=== PATIENT | male | born 1995 | race Caucasian/White ===

== ENCOUNTER 2022-01-23 15:44 | Emergency (ER) | payer BC, SELFPAY ==
--- NOTE | ~2022-01-23 | XR_ITS ---
XR foot RT min 3V DATE: 01/23/2022 16:04 INDICATION: Dorsal right foot injury, swelling TECHNIQUE: 4 views COMPARISON: None FINDINGS: No fracture or dislocation, periosteal reaction or bone destruction. Joint spaces are prese rved. IMPRESSION: Negative Reviewed, dictated and finalized at location B. IMPRESSION: Negative
[2022-01-23 15:55] VITALS: BP 122/68; PULSE 81; RESP 16; TEMP 36.6; O2SAT 100
--- NOTE | 2022-01-23 16:06 | ED.LOWEXIN ---
HPI - Extremity Injury (Lower) General Chief Complaint: Extremity Injury, Lower Stated Complaint: Right Foot Pain Time Seen by Provider: 01/23/22 16:07 Source: patient Mode of arrival: ambulatory Limitations: no limitations History of Present Illness HPI Narrative: 26-year-old male presented for complaint of right foot pain after injury 3 days ago when he dropped a piece of wood on the foot. Endorses bruising tingling to the 2nd 3rd and 4th toes. Also endorses an abrasion to the top of the foot. This is the site of the most pain. Denies decreased ROM. He is able to ambulate without difficulty. Up-to-date on tetanus. Related Data Allergies Allergy/AdvReac Type Severity Reaction Status Date / Time clavulanic acid Allergy Mild Unknown Verified 01/23/22 16:09 Penicillins Allergy Mild Unknown Verified 01/23/22 16:09 BETALACTAMASEIN Allergy Mild Unknown Uncoded 01/23/22 16:09 Review of Systems Review of Systems: CONSTITUTIONAL: Denies body aches, fever, chills CARDIOVASCULAR: Denies chest pain, palpitations, or edema. RESPIRATORY: Denies cough or dyspnea. SKIN: Denies rash, itching MUSCULOSKELETAL: Reports right foot pain NEUROLOGIC: Denies headache, numbness, tingling, or weakness. All systems reviewed & are unremarkable except as noted in HPI and below PMFSH Comments At time of signature, I have reviewed and agree with nursing past medical, surgical, social and family history unless otherwise noted. Please see nursing chart for further information. There is no relevant family history pertinent to the presenting complaint Exam Narrative: GENERAL: Well-appearing CHEST: Speaks in full sentences. No respiratory distress. HEART: Regular rate and rhythm. Normal and equal peripheral pulses. EXTREMITIES: right foot with bruising to 2nd-4th MTP joints, nontender, full active ROM. Right dorsal/lateral aspect of foot with abrasion and surrounding erythema, tender to palpation, no drainage or swelling. has normal strength and sensation; pulse palpable and equal bilaterally, skin warm, dry, pink. Capillary refill less than 3 seconds. SKIN: Warm, dry, no rash. NEURO: Alert and oriented x3. PSYCH: Normal mood and affect Course Course Emergency Course: Patient is aware of diagnosis, understands and agrees to treatment plan. Anticipatory guidance given. Patient agrees to follow-up as directed and is aware of reasons to seek care at the emergency department. Portions of this record may have been created with voice recognition software Level of Care: Express Care Visit Vital Signs Vital signs: Vital Signs Temperature 97.9 F 01/23/22 15:55 Pulse Rate 81 01/23/22 15:55 Respiratory Rate 16 01/23/22 15:55 Blood Pressure 122/68 01/23/22 15:55 Pulse Oximetry 100 01/23/22 15:55 Oxygen Delivery Room Air 01/23/22 15:55 Temperature 97.9 F 01/23/22 15:55 Pulse Rate 81 01/23/22 15:55 Respiratory Rate 16 01/23/22 15:55 Blood Pressure 122/68 01/23/22 15:55 Pulse Oximetry 100 01/23/22 15:55 Oxygen Delivery Room Air 01/23/22 15:55 Reviewed MDM - Extremity Injury (Lower) MDM Narrative Medical decision making narrative: Results of x-ray reviewed with patient. He is advised supportive measures, RICE therapy, And signs/symptoms to go to the ER. CATALINO applied per RN. Pt is appropriate for outpt treatment and f/u. Differential Diagnosis Differential diagnosis: Likely other (Toe fracture, foot fracture, foot contusion, abrasion) Imaging Data Radiologist's impression: Ordering Physician: Callie Lu APRN Date of Service: 01/23/22 Procedure(s): XR foot RT min 3V Accession Number(s): [id number] cc: Callie Lu APRN; TECHNICAL COORDINATOR PHYSICIAN~ XR foot RT min 3V DATE: 01/23/2022 16:04 INDICATION: Dorsal right foot injury, swelling? TECHNIQUE: 4 views? COMPARISON: None? FINDINGS: No fracture or dislocation, periosteal reaction or bone destruction. Joint spaces are preserved.?
== END 2022-01-23 16:27 | disposition home or self-care (01) ==
PROVIDERS: Emergency Provider Nurse Practitioner Family
DX: S90.811A Abrasion, right foot, initial encounter (principal); W20.8XXA Other cause of strike by thrown, projected or falling object, initial encounter; S90.121A Contusion of right lesser toe(s) without damage to nail, initial encounter
CPT/HCPCS: 73630; 99213; G0463

== ENCOUNTER 2022-05-15 12:38 | Emergency (ER) | payer BC, SELFPAY ==
--- NOTE | ~2022-05-15 | XR_ITS ---
EXAMINATION: XR shoulder RT min 2V DATE: 05/15/2022 13:34 INDICATION: Right shoulder pain. TECHNIQUE: 4 views of right shoulder were obtained. COMPARISON: None. FINDINGS: Bone alignment is normal. No fracture. Joint spaces are well maintained. IMPRESSION: 1. Normal right shoulder. Reviewed, dictated and finalized at location A. CURER IMPRESSION: 1. Normal right shoulder.
[2022-05-15 12:48] VITALS: BP 132/81; PULSE 72; RESP 16; TEMP 37.1; O2SAT 100
--- NOTE | 2022-05-15 13:08 | ED.UPPEXIN ---
HPI - Extremity Injury (Upper) General Chief Complaint: Extremity Injury, Upper Stated Complaint: Right Shoulder Pain Time Seen by Provider: 05/15/22 13:09 Source: patient, RN notes reviewed and old records reviewed Mode of arrival: ambulatory Limitations: no limitations History of Present Illness HPI narrative: 26-year-old male presents to the [facility] with complaints of right shoulder pain since Sunday, 3 days. Patient reports that he was arm wrestling when he felt a pop in her shoulder. Had taken some ibuprofen with minimal relief. Has full range of motion. No bruising or swelling noted. Positive radial pulse. Sensation intact in all 5 fingers. No numbness or tingling in extremity. Onset (ago): day(s) (3) Related Data Allergies Allergy/AdvReac Type Severity Reaction Status Date / Time clavulanic acid Allergy Mild Unknown Verified 01/23/22 16:09 Penicillins Allergy Mild Unknown Verified 01/23/22 16:09 BETALACTAMASEIN Allergy Mild Unknown Uncoded 01/23/22 16:09 Review of Systems Review of Systems: All systems reviewed & are unremarkable except as noted in HPI and below Constitutional: Constitutional: Reports no additional constitutional complaints, Denies chills and Denies fever(s) Eyes: Eyes: Reports no additional eye complaints ENT: Reports system reviewed and no additional complaints, except as documented Cardiovascular: Cardiovascular: Reports no additional cardiovascular complaints Respiratory: Respiratory: Reports no additional respiratory complaints Gastrointestinal: Gastrointestinal: Reports no additional gastrointestinal complaints Musculoskeletal: Musculoskeletal: Reports as per HPI, Reports arthralgias (Right shoulder) and Denies joint swelling Integumentary/Breasts: Skin/Breast: Reports system reviewed and no additional complaints, except as docu Neurologic: Reports system reviewed and no additional complaints, except as documented Psychiatric: Psychiatric: Reports no additional psychiatric complaints Allergic/Immunologic: Allergic/Immunologic: Reports no additional allergic/immunologic complaints PMFSH Social History Social History (Updated 05/16/22 @ 08:48 by Lizzie Ayala APRN) Gender identity (if verbalized by the patient): Male Comments At the time of my signature, I reviewed and agree with the nursing past medical, surgical, social, and family history. There is no relevant family history pertinent to the patient complaint. Exam Const: General: healthy appearing, comfortable, no acute distress, well developed, alert and well nourished Nutritional Appearance: well nourished Orientation/consciousness: patient oriented x3 Limitations: no limitations HENMT: Head: normal to inspection Ears: external ears normal Eyes: General: appearance normal, both eyes and all related structures Pupils: Equal, round and reactive pupils present Neck: Neck: normal visual inspection, full ROM, no lymphadenopathy and no meningeal signs Chest: Chest palpation & inspection: normal inspection of the chest Resp: Effort & Inspection: normal respiratory effort and no use of accessory muscles Auscultation: clear to auscultation bilaterally, no crackles, no rales, no rhonchi and no wheezes Cardio: Rate: regular rate Rhythm: regular rhythm Back/Spine/Pelvis: Cervical Spine: cervical ROM normal and No Cervical spine tenderness Thoracic/Lumbar Spine: thoracic and lumbar spine normal to inspection and thoraco-lumbar ROM normal Skin: General skin exam: normal color Rashes: no rashes Wounds: no wounds Neuro: General: patient oriented x3, moves all extremities, no meningeal signs and no focal motor deficits Cranial nerves: Yes Equal, round and reactive pupils present Speech: normal speech Gait exam (Neuro): Normal gait present Extrem: General: normal to inspection, full ROM and capillary refill normal Right upper extremity: normal capillary refill, shoulder/upper arm tenderness of the A-C joint and normal R
== END 2022-05-15 14:01 | disposition home or self-care (01) ==
PROVIDERS: Emergency Provider Nurse Practitioner
DX: S46.911A Strain of unspecified muscle, fascia and tendon at shoulder and upper arm level, right arm, initial encounter (principal); X50.9XXA Other and unspecified overexertion or strenuous movements or postures, initial encounter
CPT/HCPCS: 73030; 99213; G0463

== ENCOUNTER 2023-12-06 11:40 | Emergency (ER) | payer BC, SELFPAY ==
--- NOTE | 2023-12-06 11:42 | ED.URI ---
HPI - URI/Sore Throat General Chief Complaint: Eye Problems Stated Complaint: left eyelid swollen,fatigue,bodyaches,fever,sore t Time Seen by Provider: 12/06/23 11:42 Source: patient Mode of arrival: ambulatory Limitations: no limitations History of Present Illness HPI Narrative: Patient is a 28-year-old male who presents with 2 days of left upper eyelid swelling, along with generalized fatigue, body aches, fever and sore throat since Sunday. Started with left lower eyelid swelling that went away with warm compresses. Patient has taken [id number] with no relief. Does report sore throat has improved and is almost gone. Related Data Allergies Allergy/AdvReac Type Severity Reaction Status Date / Time clavulanic acid Allergy Mild Unknown Verified 01/23/22 16:09 Penicillins Allergy Mild Unknown Verified 01/23/22 16:09 BETALACTAMASEIN Allergy Mild Unknown Uncoded 01/23/22 16:09 Review of Systems Review of Systems: All systems reviewed & are unremarkable except as noted in HPI and below Constitutional: Constitutional: Reports body ache(s), Denies chills, Reports fatigue, Reports fever(s), Denies headache(s), Denies malaise and Denies weakness Eyes: Eyes: Denies blurry vision, Reports itchy eyes, Denies loss of vision and Reports other (Eyelid swelling) ENT: Denies otalgia, Denies headache(s), Reports nasal congestion, Denies sinus pain and Reports sore throat Cardiovascular: Cardiovascular: Denies chest pain, Denies irregular heart rhythm and Denies dyspnea Respiratory: Respiratory: Denies cough and Denies dyspnea Gastrointestinal: Gastrointestinal: Denies abdominal pain, Denies diarrhea, Denies nausea and Denies vomiting Musculoskeletal: Musculoskeletal: Denies back pain, Reports myalgias and Denies arthralgias Integumentary/Breasts: Skin/Breast: Denies pruritus and Denies rash Neurologic: Denies headache(s), Denies loss of vision and Denies weakness Psychiatric: Psychiatric: Reports no additional psychiatric complaints Endocrine: Endocrine: Denies fatigue Allergic/Immunologic: Allergic/Immunologic: Denies itchy eyes PMFSH Social History Social History Gender identity (if verbalized by the patient): Male Comments At time of signature, agree with nursing past medical, surgical, social and family history. There is no relevant family history pertinent to the presenting complaint. Exam Const: General: cooperative, healthy appearing, comfortable, no acute distress and well nourished Nutritional Appearance: well nourished Orientation/consciousness: patient oriented x3 Limitations: no limitations HENMT: Head: normal to inspection, normocephalic and atraumatic Ears: hearing grossly normal bilaterally, external ears normal, TM's normal bilaterally, no periauricular adenopathy and Abnormal EAC present excessive cerumen on the left Face/Nose/Sinus: Normal external nose present, Abnormal mucous membranes and turbinates present erythematous bilateral and diffuse, normal facial exam, sinuses nontender and face symmetric Face and sinus: normal facial exam, sinuses nontender and face symmetric Mouth: Yes Normal oral and palatal mucosa present, Yes lip normal, Yes tongue normal, Yes Normal salivary glands and ducts present, Yes oropharynx normal and Yes moist mucous membranes Teeth and gingiva: dentition normal Throat: uvula midline, abnormal tonsil bilateral erythema, hypertrophy 2+ and pitting, posterior oropharynx abnormal erythema and postnasal drainage Eyes: General: appearance normal, both eyes and all related structures Alignment and Position: alignment normal and position normal Periorbital: periorbital findings normal Eyelids: eyelid abnormality left upper eyelid inflamed cyst internal lid, erythema, swelling and tenderness Conjunctivae: conjunctivae normal Sclera: sclerae normal Pupils: Equal, round and reactive pupils present Neck: Neck: normal visual inspecti
[2023-12-06 11:57] VITALS: BP 120/100; PULSE 95; RESP 16; TEMP 36.6; O2SAT 100
== END 2023-12-06 12:40 | disposition home or self-care (01) ==
PROVIDERS: Emergency Provider Nurse Practitioner Family
DX: H00.014 Hordeolum externum left upper eyelid (principal); J30.9 Allergic rhinitis, unspecified
CPT/HCPCS: 99213; G0463